=== PATIENT | female | born 1975 | race Caucasian/White ===

== ENCOUNTER → 2020-02-01 11:46 | Outpatient (BNVA) | payer OTHER, SELFPAY | PROVIDERS: PCP Nurse Practitioner Family; Visit Provider Nurse Practitioner Family | DX: E55.9 Vitamin D deficiency, unspecified (principal); I10 Essential (primary) hypertension; Z86.39 Personal history of other endocrine, nutritional and metabolic disease | CPT/HCPCS: 80053; 80061; 82306; 84439; 84443; 84481; 85025 ==

== ENCOUNTER 2020-02-18 06:58 | Outpatient (CLI) | payer OTHER, SELFPAY ==
--- NOTE | 2020-02-18 07:15 | US_ITS ---
WS: [id number] THYROID ULTRASOUND HISTORY: thyroid nodule recheck COMPARISON: 07/17/2016 and 05/14/2011 Right lobe: 5.4 cm x 2.5 cm x 2.1 cm. Volume: 14.2 cm3. Mildly enlarged thyroid gland. There is a solid nodule with minimal cystic component in the mid thyro id measuring 1.1 x 0.8 x 1.2 cm. Slight increase in size since the prior study. Slightly taller than wide. Margins are slightly ill-defined. No echogenic foci. There is some very mild increased vascular ity. Left lobe: 5.3 cm x 2.3 cm x 1.9 cm. Volume: 11.9 cm3. Normal size and echotexture. No significant or dominant nodules are present. Isthmus: 0.4 cm. US/US thyroid [id number] IMPRESSION: 1. Slight increase in size of the RIGHT thyroid nodule. Moderate suspicion for malignancy. Using ACR TI-RADS criteria ultrasound follow-up in 6 months is rec ommended. If this nodule continues to increase in size ultrasound fine-needle a spiration should be performed. 2. No additional nodules.
== END 2020-02-18 06:59 | disposition home or self-care (01) ==
PROVIDERS: PCP Nurse Practitioner Family; Visit Provider Nurse Practitioner Family
DX: E04.1 Nontoxic single thyroid nodule (principal)
CPT/HCPCS: 76536

== ENCOUNTER 2020-12-13 07:02 | Outpatient (CLI) | payer OTHER, SELFPAY ==
--- NOTE | 2020-12-13 07:08 | US_ITS ---
WS: [id number] ULTRASOUND THYROID TECHNIQUE: Ultrasound of the thyroid. CLINICAL INFORMATION: enlarging thyroid; 6 month recheck COMPARISON: February 18, 2020 FINDINGS: Thyroid: Right and left thyroid lobes are normal in size and echotexture. Slightly complex nodule in the mid right thyroid not significantly changed from previous. Today this measures 1.1 x 1.0 x 1.0 cm Additional tiny solid left thyroid nodule in the mid thyroid measuring 0.6 x 0.8 x 0.5 CM. Right thyroid lobe: 4.4 cm x 2.1 cm x 2.8 cm Left thyroid lobe: 5.5 cm x 2.6 cm x 1.9 cm. Isthmus: 0.4 mm. Cervical lymphadenopathy: None. US/US thyroid [id number] IMPRESSION: 1. Slightly complex nodule in the mid right thyroid not significantly changed from previous. Today this measures 1.1 x 1.0 x 1.0 cm. Recommend 12 month follo w-up. 2. Additional tiny solid left thyroid nodule in the mid thyroid measuring 0.6 x 0.8 x 0.5 CM.
== END 2020-12-13 07:03 | disposition home or self-care (01) ==
LOC: RAD 07:07
PROVIDERS: PCP Nurse Practitioner Family; Visit Provider Nurse Practitioner Family
DX: Z86.39 Personal history of other endocrine, nutritional and metabolic disease (principal)
CPT/HCPCS: 76536

== ENCOUNTER 2020-12-28 12:00 | Outpatient (CLI) | payer OTHER, SELFPAY | END 2020-12-28 12:01 | disposition home or self-care (01) | LOC: SLEEP 12-29 13:39 | PROVIDERS: PCP Nurse Practitioner Family; Visit Provider Nurse Practitioner Family | DX: G47.10 Hypersomnia, unspecified (principal) | CPT/HCPCS: G0399 ==